=== PATIENT | male | born 1980 | race Caucasian/White ===

== ENCOUNTER → 2020-12-29 | Outpatient (CLI) | payer OTHER | LOC: ULTRA 08:39 | PROVIDERS: ATTEND Family Medicine | DX: R10.11 Right upper quadrant pain (principal) ==

== ENCOUNTER → 2021-01-12 | Outpatient (CLI) | payer OTHER ==
[~2021-01-12] MED LIST: ONE-DAILY MULT1 EAC1 PO; PRILOSEC OTC20 MG PO; VITAMIN C500 M1 PO; ZYRTEC10 M5 PO
== END ==
LOC: LAB 08:32
PROVIDERS: ATTEND Surgery
DX: Z01.812 Encounter for preprocedural laboratory examination (principal); Z20.822 Contact with and (suspected) exposure to COVID-19

== ENCOUNTER 2021-01-15 08:06 | Observation (INO) | payer OTHER ==
[~2021-01-15] VITALS: Ht 175.3 cm; Wt 76.2 kg
--- NOTE | ~2021-01-15 | O ---
[facility] [place] [address] OPERATIVE REPORT Name: ADRYAN BOTELLO Room #: 441-P [facility] Ingrid Carmona#: [id number] Admission: 01/15/21 Attend Phys: Yassine Dodge MD Discharge: 01/15/21 Date of : 76 Report #: [id number] THIS REPORT FOR: cc: Lee Black James A. DO Chu, Peter Y. MD ~ DATE OF SERVICE: 01/15/2021 COVERING FOR: Dr. Lee Black. PREOPERATIVE DIAGNOSES: Cholecystitis with cholesterolosis. POSTOPERATIVE DIAGNOSES: Cholecystitis with small gallstones. PROCEDURE PERFORMED: Laparoscopic cholecystectomy with cholangiogram. SURGEON: Yassine Dodge MD ANESTHESIA: General anesthesia. COMPLICATIONS: None. BLOOD LOSS: 5 mL. PROCEDURE NOTE: With the patient under general anesthesia, abdomen was prepped and draped in sterile fashion. IV antibiotic was administered. Timeout was performed. A 0.25% Marcaine was used to anesthetize the skin infraumbilically, a 2 cm curved incision was made infraumbilically. Fascia was identified. Fascia was grasped with hemostat. Fascia was then opened under visualization. 0 Vicryl suture placed on the fascia edges. With the abdominal wall lifted anteriorly, Veress needle was then placed through the peritoneum. Abdominal cavity was insufflated with CO2 without difficulty. After creating pneumoperitoneum, 11 mm trocar was placed in the fascia through the peritoneum under visualization. No harm to another tissue. Laparoscopic evaluation shows some mild sigmoid fatty adhesion to the wall. The patient has a right inguinal hernia, indirect in nature. Fairly small. Two 5 mm trocars were placed in the right upper quadrant and a 5 mm trocar was placed in right epigastrium. Gallbladder was lifted over the liver and looked out. Gallbladder was lifted cephalad. There was adhesion on the gallbladder and this is consistent with chronic inflammation. Adhesions were taken down. The gallbladder was moderately distended. The fat underneath the proximal gallbladder was dissected free. The infundibulum of the gallbladder is looped over the cystic duct. This was able to be straightened out. The cystic duct was isolated. Clip was placed in junction of cystic duct to the gallbladder. Opening was made in the cystic duct. Cholangiogram catheter was placed. Fluoroscopic cholangiogram was [address] [address] OPERATIVE REPORT Name: ADRYAN BOTELLO Room #: 441-P [facility] Ingrid Carmona#: [id number] Admission: 01/15/21 Attend Phys: Yassine Dodge MD Discharge: 01/15/21 Date of : 76 Report #: [id number] obtained. The cholangiogram catheter was identified in the cystic duct. No harm to the common duct seen. Common duct filled out well without any stone in the common duct. The cholangiogram catheter was then removed. Proximal cystic duct was clipped x 2. Cystic duct was then divided. The main cystic artery was isolated. This was clipped x 2 proximally and 1 distally and then divided. There was a separate posterior branch that was clipped also proximally x 2 divided distally x 1 and then divided. The gallbladder was then freed from the liver bed. The gallbladder once was free, was removed through the umbilical incision. Gallbladder was opened off the field and there a small blackish stone in the gallbladder. Also, an area of cholesterol deposit seen. Liver bed was checked, hemostasis obtained and noted to be excellent. Clips were intact. Irrigation was aspirated out. Trocars removed. CO2 was evacuated as much as possible. The infraumbilical fascia defect was closed with [id number] 0 Vicryl x 2. Skin was irrigated. Skin was closed with 5-0 PDS. Mastisol and Steri-Strips applied. Band-Aid was used. The patient was awakened and taken to recovery and tolerated the procedure well. By: Yassine Dodge MD /nt
[2021-01-15 09:17] VITALS: BP 160/105
[2021-01-15] MEDS ORDERED: HYDROCODON-ACE1 EAC7 PO (12:16)
[2021-01-15 12:31] VITALS: BP 160/105
--- NOTE | 2021-01-15 13:07 | EKG ---
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
--- NOTE | 2021-01-15 18:18 | NUR ---
PT TO 4S FROM RECOVERY ROOM AT 1400. PT GIVEN PAIN MEDICATIONS ORDERED. BP ELEVATED THIS AFTERNOON. SPOKE WITH DR ALONZO AT 1630 AND HE SAYS TO GO AHEAD WITH DISCHARGE AND HAVE PT FOLLOW UP WITH PCP REGARDING BP. DISCHARGE INSTRUCTIONS DISCUSSED WITH PT AND HE VERBALIZED UNDERSTANDING. PT'S MOM AND DAD AT BEDSIDE. IV DISCONTINUED PRIOR TO DISCHARGE. DISCHARGED BY PRIVATE CAR WITH PARENTS.
== END 2021-01-15 16:35 | disposition home or self-care (01) ==
LOC: OR 08:06 → TBA 08:06 → OR 08:32 → TBA 12:10 → OR 13:33 → 4S 15:03
PROVIDERS: ADMIT Surgery; ATTEND Surgery
DX: K80.10 Calculus of gallbladder with chronic cholecystitis without obstruction (principal); Z79.899 Other long term (current) drug therapy
CPT/HCPCS: 50010; 50101; 50411; 50555; 50558; 51489; 52265; 53307; 53310; 55245; 55317; 56462; 56525; 56526; 58574; 70005